=== PATIENT | female | born 1995 | race Asian ===

== ENCOUNTER → 2018-04-15 19:27 | Outpatient (REF) | payer OTHER, SELFPAY ==
[2018-04-15 21:16] LABS: Urine N gonorrhoeae NOT DETECTED
[2018-04-15 21:29] LABS: Urine Chlamydia NOT DETECTED
== END ==
LOC: LAB 19:27
PROVIDERS: PCP Family Medicine; Visit Provider Family Medicine
DX: Z30.430 Encounter for insertion of intrauterine contraceptive device (principal)
CPT/HCPCS: 87491; 87591

== ENCOUNTER → 2020-01-31 14:43 | Outpatient (ROUT) | payer OTHER, SELFPAY | PROVIDERS: PCP Family Medicine; Visit Provider Family Medicine | DX: Z11.3 Encounter for screening for infections with a predominantly sexual mode of transmission (principal) | CPT/HCPCS: 87491; 87591 ==